=== PATIENT | male | born 1955 | race Caucasian/White ===

== ENCOUNTER 2017-04-25 15:49 | Inpatient (IN) | payer OTHER ==
--- NOTE | ~2017-04-25 | DS ---
Discharge Summary [facility] [address] [place]. [address] NAME: ZO LEBRON : 59 STATUS : DIS IN PAT#: [id number] AGE: 61 ADM/REG DATE : 04/25/17 MR#: [id number] REPORT SERV DATE: 05/01/17 DICTATED BY: AAKASH RODRIGUEZ DATE: 04/30/17 REPORT STATUS : Draft TRANSCRIBED BY: MODL DATE: 04/30/17 ADMISSION DATE: 04/25/2017 DISCHARGE DATE: 04/30/2017 The patient is a 61-year-old male with a history of and significant tobacco abuse, who presented to the hospital with a complaint of a gangrenous finger. For further details, please refer to the H and P dictated by me on 04/25/2017. Upon presenting to the hospital, the patient was admitted on the Hospitalist Service for further management given his right third digit upper extremity gangrene. Vascular Surgery was consulted. Working diagnosis was Buerger's disease, however, lab work was obtained to rule out any possible etiology. The patient was taken to the OR by Vascular Surgery and right finger amputated. The patient returned to the hospital room where he has remained hemodynamically stable. During his hospital course, the patient has been requesting significant pain medication. His drug of preference was Dilaudid, and that when Dilaudid was discontinued, the patient got very irritated during his hospital course status post amputation, the patient has remained hemodynamically stable. Workup for autoimmune etiologies so far has been negative, however, the patient has a positive CHARISSA workup. Results for scleroderma are still pending. Given the patient's hemodynamic stability and clearance from Vascular Surgery, the patient will be discharged to home today. The plan is for the patient to follow up with Vascular Surgery in two to three weeks for followup, that has been discussed with the patient. DISCHARGE PHYSICAL EXAMINATION: VITAL SIGNS: Blood pressure 93/57 with a pulse of 100, respirations 15, O2 saturation 97% on room air. GENERAL: The patient is lying in bed, in no acute distress. Appears stated age. HEENT: Normocephalic and atraumatic. Extraocular motors intact. Oral mucosa was moist. Trachea midline and symmetric. RESPIRATIONS: Normal respiratory effort. Equal chest expansion. Cardiovascular: Regular rate and rhythm. No murmurs were noted. ABDOMEN: Flat. Positive bowel sounds. Nontender. Nondistended. EXTREMITIES: No cyanosis, no clubbing, no edema. DISCHARGE DIAGNOSES: 1. Buerger disease. 2. . 3. Tobacco abuse. DISCHARGE MEDICATIONS: 1. Aspirin 81 mg p.o. daily. 2. Atorvastatin 40 mg p.o. daily. 3. Nifedipine XL 30 mg p.o. at bedtime. 4. Viagra 50 mg p.o. q.8 hours. DISPOSITION: The patient will be discharged to home. ACTIVITY: As tolerated. Discharge Summary [address] [address] NAME: ZO LEBRON : 59 STATUS : DIS IN PAT#: [id number] AGE: 61 ADM/REG DATE : 04/25/17 MR#: [id number] REPORT SERV DATE: 05/01/17 DICTATED BY: AAKASH RODRIGUEZ DATE: 04/30/17 REPORT STATUS : Draft TRANSCRIBED BY: LORETTA DATE: 04/30/17 DIET: As tolerated. Greater than 30 minutes was spent in dictating note, coordinating discharge, dictating prescription. DICTATED BY: MD ERICK Thomas/LORETTA Aakash Rodriguez MD / [id number] CC: Aakash Rodriguez MD
--- NOTE | ~2017-04-25 | OP ---
Record Of Operation [facility] [place] [address] [place] [place] [address] NAME: ZO LEBRON : 59 STATUS : ADM IN [facility]#: [id number] AGE: 61 ADM/REG DATE : 04/25/17 MR#: [id number] REPORT SERV DATE: 04/27/17 DICTATED BY: MEÑO LEMA JR. DATE: 04/27/17 REPORT STATUS : Draft TRANSCRIBED BY: MODL DATE: 04/27/17 DATE OF PROCEDURE: 04/27/2017 PREOPERATIVE DIAGNOSES: Buerger's disease, infarction of tip of right third finger. POSTOPERATIVE DIAGNOSES: Buerger's disease, infarction of tip of right third finger. OPERATION: Right third finger disarticulation through the PIP joint. SURGEON: Dr. Meño Lema. VASCULAR FELLOW: Dr. Mireya Nixon. HISTORY: This is a 61-year-old white male, admitted to the hospital two days ago with infarction at the tip of his right third finger, and a palpable right radial pulse, compatible with Buerger's disease. It was extremely painful. DESCRIPTION OF PROCEDURE: The patient was placed on the operating room table. He underwent a general anesthetic. The right hand was prepped and draped in the usual sterile manner. Standard anterior-posterior flaps were drawn and then cut. The extensor and flexor tendons were cut. The joint space was entered. The finger was disarticulated. The wound was closed with 4-0 nylon. The patient tolerated the procedure well. Taken back to the recovery room in fair condition. There were no intraoperative complications. ESTIMATED BLOOD LOSS: Negligible. DF/LORETTA Meño Lema Jr., M.D. / [id number] CC: Ramone Langston MD
--- NOTE | ~2017-04-25 | HP ---
History And Physical [facility] [address] [facility] [place]. [address] NAME: ZO GANDHI : 59 STATUS : ADM IN [facility]#: [id number] AGE: 61 ADM/REG DATE : 04/25/17 MR#: [id number] REPORT SERV DATE: 04/25/17 DICTATED BY: AAKASH RODRIGUEZ DATE: 04/25/17 REPORT STATUS : Draft TRANSCRIBED BY: MODL DATE: 04/25/17 DATE OF ADMISSION: 04/25/2017 CHIEF COMPLAINT: Right third finger pain and gangrene. HISTORY OF PRESENTING ILLNESS: Mr. Gandhi is a 61-year-old male with a history of hypertension and significant tobacco abuse who presented to the hospital with a complaint of right upper extremity third digit gangrene and severe pain. Patient states that his symptoms started about one month ago. He states that about one month ago he started having severe pain in his third right upper extremity digit, which progressively worsened and became gangrenous. Patient states that he had his symptoms evaluated at the [facility] in [place] about two weeks ago, at which time, he was given pain medications, placed on antibiotics, and subsequently discharged. He was told to stop smoking and was not offered nicotine patch as this would not have improved his symptoms. Patient subsequently left [place] and returned to [place] and has continued to smoke. He presents today with severe pain that he rates as throbbing, 10/10 in severity. Upon presentation to the emergency room, preliminary workup included CBC and chem-7, which noted elevated WBC at 12.3. Patient was admitted under Hospitalist Service for further management. At the time of my evaluation, patient corroborated the above story. He denies any injury or any trauma to the finger stating that his symptoms happened all of a sudden. He denies any other medical problems and states that he is relatively healthy. He, however, endorsed significant tobacco use reporting an 80-pack year smoking history. Reports intermittent use of marijuana stating that the last time he used the said medication was about five years ago. Denies any cocaine use or heroin use. REVIEW OF SYSTEMS: A 10-point review of system was performed. All systems were negative except as noted in the HPI. PAST MEDICAL HISTORY: Significant for hypertension. PAST SURGICAL HISTORY: Appendectomy. FAMILY HISTORY: Noncontributory. SOCIAL HISTORY: The patient reports an 80-pack year smoking history. He reports alcohol use. Reports a remote history of marijuana use. States that he has not used it in the past five years. ALLERGIES: PATIENT IS ALLERGIC TO PENICILLIN. PHYSICAL EXAMINATION: VITAL SIGNS: On presentation, blood pressure 117/71 with a pulse of 91, respiration 18, O2 saturation 94% on room air. GENERAL: Patient sitting in bed, in moderate distress. Appears stated age. HEENT: Normocephalic, atraumatic. Extraocular motors intact. Moist oral mucosa. History And Physical [address] [address] NAME: ZO GANDHI : 59 STATUS : ADM IN [facility]#: [id number] AGE: 61 ADM/REG DATE : 04/25/17 MR#: [id number] REPORT SERV DATE: 04/25/17 DICTATED BY: AAKASH RODRIGUEZ DATE: 04/25/17 REPORT STATUS : Draft TRANSCRIBED BY: LORETTA DATE: 04/25/17 NECK: Trachea midline and symmetric. No JVD noted. CHEST: Nontender to palpation. CARDIOVASCULAR: Regular rate and rhythm. S1, S2. No murmurs, rubs, or gallops. LUNGS: Clear to auscultation bilaterally. No added breath sounds. ABDOMEN: Positive bowel sounds. Nontender, nondistended. EXTREMITIES: Third digit gangrene noted. No cyanosis; however, clubbing noted on upper extremities. IMAGING: No imaging available. LABS: WBC 12.3, hemoglobin 12.6, hematocrit 37.4, platelets 583. Sodium 138, potassium 4.0, chloride 105, bicarb 26, BUN 18, creatinine 0.66, glucose 103. ASSESSMENT AND PLAN: 1. Right third digit upper extremity gangrene. Differentials include thromboangiitis obliterans versus CREST syndrome versus lupus versus mixed connective tissue disease versus scleroderma. Etiology unclear at this time. Thromboangiitis obliterans, average age of onset is usually between 40 to 45, and also more common in individuals that have recently smoked or not smoked for an extended period of time. However, thromboangiitis obliterans is a diagnosis of exclusion, so plan will be to exclude other etiologies of occlusive vascular disease. We will consult Vascular Surgery. We will obtain ESR, CRP, anticentromere antibody. We will also check for CHARISSA, rheumatoid factor, and Scl-70 to rule out scleroderma. We will also check for clotting problems including protein C, protein S, antithrombin III, and Factor V Leiden. We will also check for antiphospholipid antibodies and anticardiolipin antibodies. Also, we will obtain urine to check for cocaine, amphetamines, and cannabis. 2. Hypertension, currently controlled. Patient on nifedipine XL. Continue current management. 3. Tobacco abuse. Patient reports [id number] smoking history. We will hold nicotine patch as it worsens thromboangiitis. We will consider bupropion and varenicline. ERICK/LORETTA Aakash Rodriguez MD / [id number] CC: Aakash Rodriguez MD
[2017-04-25 13:46] LABS: BASOPHILS 0.6 %; BASOPHILS ABSOLUTE 0.07 10/3/uL (0.0-0.16); EOSINOPHILS 6.5 %; ER CBC TAT 0 Hrs 07 Mins; HEMATOCRIT 37.4 % (40.0-51.0); HEMOGLOBIN 12.6 g/dL (13.6-17.8); IMMATURE GRANULOCYTES 0.7 %; IMMATURE GRANULOCYTES ABSOLUTE 0.09 10/3/uL (0.0-0.11); LYMPHOCYTES 19.1 %; LYMPHOCYTES ABSOLUTE 2.35 10/3/uL (0.67-4.30); MANUAL DIFF NO %; MEAN CORPUS HGB CONC 33.7 g/dL (32.0-36.0); MEAN CORPUSCULAR VOLUME 97.9 fL (80-100); MEAN PLATELET VOLUME 8.3 fL (9.2-13.0); MONOCYTES 8.4 %; MONOCYTES ABSOLUTE 1.03 10/3/uL (0.21-1.20); NEUTROPHILS 64.7 %; NEUTROPHILS ABSOLUTE 7.98 10/3/uL (2.02-8.40); PLATELET COUNT 583 10/3/uL (150-400); RBC DISTRIBUTION WIDTH 15.1 % (12.0-16.0); RED CELL COUNT 3.82 10/6/uL (4.7-6.1); WHITE BLOOD CELLS 12.3 10/3/uL (4.5-10.5)
[2017-04-25 13:52] LABS: PARTIAL THROMBO TIME 36.4 SEC (22.5-37.2); PROTIME (NOT ORD) 12.8 SEC (12.0-14.5)
[2017-04-25 14:04] LABS: A/G RATIO 0.8 (0.7-1.9); ALBUMIN 2.8 G/DL (3.5-5.0); ALKALINE PHOSPHATASE 101 U/L (45-117); BUN (BLOOD UREA NITROGEN) 18 MG/DL (6-23); CALCIUM, SERUM 8.4 MG/DL (8.5-10.4); CHLORIDE, SERUM 105 MMOL/L (96-112); CO2 (CARBON DIOXIDE) 26 MMOL/L (24-34); CREATININE 0.66 MG/DL (0.70-1.30); GFR AFRICAN AMERICAN 123 ML/MIN (>=60); GFR NON AFRICAN AMERICAN 106 ML/MIN (>=60); GLOBULIN 3.5 G/DL (2.5-4.1); GLUCOSE, SERUM 103 MG/DL (60-99); SGOT(AST) 176 U/L (5-40); SGPT(ALT) 97 U/L (5-65); SODIUM, SERUM 138 MMOL/L (135-148); TOTAL BILIRUBIN 0.4 MG/DL (0-1.2); TOTAL PROTEIN 6.3 G/DL (6.0-8.5)
[2017-04-25 14:05] LABS: LACTATE 1.6 MMOL/L (0.3-2.4)
[~2017-04-25 15:49] MED LIST: ALEVE220 MG PO; ASAB PO; LIPITOR40 PO; NXL3 PO; ROXICODONE15 MG PO; T PO; VIAGRA50 MG PO
[2017-04-26 07:03] LABS: HEMATOCRIT 39.1 % (40.0-51.0); MEAN CORPUS HGB CONC 33.2 g/dL (32.0-36.0); MEAN CORPUSCULAR HEMOGLOB 32.9 pg (26.0-34.0); PLATELET COUNT 671 10/3/uL (150-400); RBC DISTRIBUTION WIDTH 15.2 % (12.0-16.0); RED CELL COUNT 3.95 10/6/uL (4.7-6.1); WHITE BLOOD CELLS 13.9 10/3/uL (4.5-10.5)
[2017-04-26 07:06] LABS: MANUAL DIFF YES %
[2017-04-26 07:24] LABS: A/G RATIO 0.8 (0.7-1.9); ALBUMIN 2.8 G/DL (3.5-5.0); ALKALINE PHOSPHATASE 101 U/L (45-117); BUN (BLOOD UREA NITROGEN) 17 MG/DL (6-23); C-REACTIVE PROTEIN 18.5 MG/L (<8.0); CALCIUM, SERUM 8.4 MG/DL (8.5-10.4); CHLORIDE, SERUM 105 MMOL/L (96-112); CO2 (CARBON DIOXIDE) 27 MMOL/L (24-34); CREATININE 0.57 MG/DL (0.70-1.30); GFR AFRICAN AMERICAN 130 ML/MIN (>=60); GFR NON AFRICAN AMERICAN 112 ML/MIN (>=60); GLOBULIN 3.6 G/DL (2.5-4.1); PHOSPHORUS, SERUM 3.6 MG/DL (2.5-4.5); SGPT(ALT) 100 U/L (5-65); SODIUM, SERUM 134 MMOL/L (135-148); TOTAL BILIRUBIN 0.3 MG/DL (0-1.2); TOTAL PROTEIN 6.4 G/DL (6.0-8.5)
[2017-04-26 07:26] LABS: GLUCOSE, SERUM 64 MG/DL (60-99); POTASSIUM, SERUM 4.4 MMOL/L (3.5-5.3); SGOT(AST) 176 U/L (5-40)
[2017-04-26 07:34] LABS: BAND NEUTROPHILS 7 %; BASOPHILS 2 %; BASOPHILS ABSOLUTE (CALC) 0.28 10/3/uL (0.0-0.16); EOSINOPHILS 11 %; EOSINOPHILS ABSOLUTE (CALC) 1.53 10/3/uL (0.0-0.53); LYMPHOCYTES 10 %; LYMPHOCYTES ABSOLUTE (CALC) 1.39 10/3/uL (0.67-4.30); MONOCYTES 7 %; MONOCYTES ABSOLUTE (CALC) 0.97 10/3/uL (0.21-1.20); NEUTROPHILS ABSOLUTE (CALC) 9.73 10/3/uL (2.02-8.40); PLATELET ESTIMATE INC (ADEQUATE); SEGMENTED NEUTROPHIL (0) 63 %; TOTAL NUCLEATED CELLS 100
[2017-04-26 07:35] LABS: RBC MORPHOLOGY NORM (NORMAL)
[2017-04-26 08:12] LABS: ANTITHROMBIN 3 ACTIVITY 91 % (80-121)
[2017-04-26 08:25] LABS: SED RATE 21 MM/HR (0-15)
[2017-04-26 22:27] LABS: AMPHETAMINES (NOT ORD) NEG (NEG); BARBITURATES (NOT ORDERED NEG (NEG); BENZODIAZEPINES (NOT ORD) NEG (NEG); CANNABINOIDS (THC) NEG (NEG); COCAINE (NOT ORDERED) NEG (NEG); OPIATES POS (NEG); PHENCYCLIDINE(PCP) NEG (NEG); TRICYCLICS NEG (NEG)
[2017-04-27 06:20] LABS: BASOPHILS 0.8 %; BASOPHILS ABSOLUTE 0.09 10/3/uL (0.0-0.16); EOSINOPHILS 7.5 %; EOSINOPHILS ABSOLUTE 0.89 10/3/uL (0.0-0.53); HEMOGLOBIN 12.9 g/dL (13.6-17.8); IMMATURE GRANULOCYTES 0.8 %; LYMPHOCYTES 17.8 %; LYMPHOCYTES ABSOLUTE 2.12 10/3/uL (0.67-4.30); MEAN CORPUS HGB CONC 33.1 g/dL (32.0-36.0); MEAN CORPUSCULAR HEMOGLOB 32.5 pg (26.0-34.0); MEAN CORPUSCULAR VOLUME 98.2 fL (80-100); MEAN PLATELET VOLUME 8.7 fL (9.2-13.0); MONOCYTES 10.6 %; MONOCYTES ABSOLUTE 1.26 10/3/uL (0.21-1.20); NEUTROPHILS 62.5 %; NEUTROPHILS ABSOLUTE 7.48 10/3/uL (2.02-8.40); PLATELET COUNT 581 10/3/uL (150-400); RBC DISTRIBUTION WIDTH 15.2 % (12.0-16.0); RED CELL COUNT 3.97 10/6/uL (4.7-6.1); WHITE BLOOD CELLS 11.9 10/3/uL (4.5-10.5)
[2017-04-27 06:23] LABS: MANUAL DIFF NO %
[2017-04-27 06:39] LABS: A/G RATIO 0.7 (0.7-1.9); ALBUMIN 2.5 G/DL (3.5-5.0); CALCIUM, SERUM 8.7 MG/DL (8.5-10.4); CHLORIDE, SERUM 102 MMOL/L (96-112); CO2 (CARBON DIOXIDE) 26 MMOL/L (24-34); CREATININE 0.55 MG/DL (0.70-1.30); GFR AFRICAN AMERICAN 132 ML/MIN (>=60); GFR NON AFRICAN AMERICAN 114 ML/MIN (>=60); GLOBULIN 3.7 G/DL (2.5-4.1); SGPT(ALT) 92 U/L (5-65); SODIUM, SERUM 134 MMOL/L (135-148); TOTAL BILIRUBIN 0.4 MG/DL (0-1.2); TOTAL PROTEIN 6.2 G/DL (6.0-8.5)
[2017-04-27 06:42] LABS: ALKALINE PHOSPHATASE 88 U/L (45-117); BUN (BLOOD UREA NITROGEN) 13 MG/DL (6-23); GLUCOSE, SERUM 88 MG/DL (60-99); POTASSIUM, SERUM 4.5 MMOL/L (3.5-5.3); SGOT(AST) 159 U/L (5-40)
[2017-04-27 12:27] LABS: ANA PATTERN SPECKLED; ANA TITER 1:40 TITER; ANTI CENTROMERE ANTIBODY NEGATIVE (NEGATIVE)
[2017-04-28 05:37] LABS: BASOPHILS 0.7 %; BASOPHILS ABSOLUTE 0.08 10/3/uL (0.0-0.16); EOSINOPHILS 7.2 %; EOSINOPHILS ABSOLUTE 0.84 10/3/uL (0.0-0.53); HEMATOCRIT 37.2 % (40.0-51.0); HEMOGLOBIN 12.3 g/dL (13.6-17.8); IMMATURE GRANULOCYTES ABSOLUTE 0.12 10/3/uL (0.0-0.11); LYMPHOCYTES 19.9 %; LYMPHOCYTES ABSOLUTE 2.34 10/3/uL (0.67-4.30); MEAN CORPUS HGB CONC 33.1 g/dL (32.0-36.0); MEAN CORPUSCULAR HEMOGLOB 32.1 pg (26.0-34.0); MEAN CORPUSCULAR VOLUME 97.1 fL (80-100); MEAN PLATELET VOLUME 9.1 fL (9.2-13.0); MONOCYTES 11.2 %; MONOCYTES ABSOLUTE 1.31 10/3/uL (0.21-1.20); NEUTROPHILS ABSOLUTE 7.05 10/3/uL (2.02-8.40); PLATELET COUNT 594 10/3/uL (150-400); RBC DISTRIBUTION WIDTH 14.9 % (12.0-16.0); RED CELL COUNT 3.83 10/6/uL (4.7-6.1); WHITE BLOOD CELLS 11.7 10/3/uL (4.5-10.5)
[2017-04-28 05:40] LABS: A/G RATIO 0.7 (0.7-1.9); ALBUMIN 2.4 G/DL (3.5-5.0); ALKALINE PHOSPHATASE 85 U/L (45-117); BUN (BLOOD UREA NITROGEN) 15 MG/DL (6-23); CALCIUM, SERUM 8.4 MG/DL (8.5-10.4); CHLORIDE, SERUM 104 MMOL/L (96-112); CO2 (CARBON DIOXIDE) 28 MMOL/L (24-34); CREATININE 0.62 MG/DL (0.70-1.30); GFR AFRICAN AMERICAN 126 ML/MIN (>=60); GFR NON AFRICAN AMERICAN 109 ML/MIN (>=60); GLOBULIN 3.6 G/DL (2.5-4.1); GLUCOSE, SERUM 94 MG/DL (60-99); SGPT(ALT) 94 U/L (5-65); SODIUM, SERUM 136 MMOL/L (135-148); TOTAL BILIRUBIN 0.4 MG/DL (0-1.2)
[2017-04-28 05:41] LABS: POTASSIUM, SERUM 4.2 MMOL/L (3.5-5.3); SGOT(AST) 167 U/L (5-40)
[2017-04-28 05:49] LABS: MANUAL DIFF NO %
[2017-04-28 13:15] LABS: PROTEIN C ACTIVITY 129 % (70-145); PROTEIN S ACTIVITY 51 % (69-161)
[2017-04-29 06:49] LABS: BASOPHILS 0.4 %; BASOPHILS ABSOLUTE 0.06 10/3/uL (0.0-0.16); EOSINOPHILS 4.7 %; EOSINOPHILS ABSOLUTE 0.72 10/3/uL (0.0-0.53); HEMOGLOBIN 12.1 g/dL (13.6-17.8); IMMATURE GRANULOCYTES 0.7 %; LYMPHOCYTES 13.4 %; LYMPHOCYTES ABSOLUTE 2.04 10/3/uL (0.67-4.30); MEAN CORPUS HGB CONC 33.6 g/dL (32.0-36.0); MEAN CORPUSCULAR HEMOGLOB 32.4 pg (26.0-34.0); MEAN CORPUSCULAR VOLUME 96.5 fL (80-100); MONOCYTES 10.2 %; MONOCYTES ABSOLUTE 1.55 10/3/uL (0.21-1.20); NEUTROPHILS 70.6 %; NEUTROPHILS ABSOLUTE 10.72 10/3/uL (2.02-8.40); PLATELET COUNT 552 10/3/uL (150-400); RBC DISTRIBUTION WIDTH 14.9 % (12.0-16.0); RED CELL COUNT 3.73 10/6/uL (4.7-6.1); WHITE BLOOD CELLS 15.2 10/3/uL (4.5-10.5)
[2017-04-29 06:50] LABS: MANUAL DIFF NO %
[2017-04-29 07:03] LABS: A/G RATIO 0.7 (0.7-1.9); ALBUMIN 2.5 G/DL (3.5-5.0); ALKALINE PHOSPHATASE 87 U/L (45-117); BUN (BLOOD UREA NITROGEN) 15 MG/DL (6-23); CALCIUM, SERUM 8.5 MG/DL (8.5-10.4); CHLORIDE, SERUM 104 MMOL/L (96-112); CO2 (CARBON DIOXIDE) 28 MMOL/L (24-34); CREATININE 0.56 MG/DL (0.70-1.30); GFR AFRICAN AMERICAN 131 ML/MIN (>=60); GFR NON AFRICAN AMERICAN 113 ML/MIN (>=60); GLOBULIN 3.5 G/DL (2.5-4.1); GLUCOSE, SERUM 85 MG/DL (60-99); POTASSIUM, SERUM 4.2 MMOL/L (3.5-5.3); SGOT(AST) 171 U/L (5-40); SGPT(ALT) 98 U/L (5-65); SODIUM, SERUM 136 MMOL/L (135-148); TOTAL BILIRUBIN 0.4 MG/DL (0-1.2)
[2017-04-30] MEDS ORDERED: PCET PO (17:00)
[2017-05-14 11:05] LABS: ANTI-CARDIOLIPIN ANTIBODY IGA 3
== END 2017-04-30 19:36 | disposition home or self-care (01) | DRG 257 ==
LOC: ER 15:49 → 5SO 17:20
PROVIDERS: Hospitalist; Nurse Practitioner; Surgery
PROC: 0X6Q0Z0 Detachment at Right Middle Finger, Complete, Open Approach (ICD-10-PCS; principal; 2017-04-27 09:15)
DX: I73.1 Thromboangiitis obliterans [Buerger's disease] (principal); I10 Essential (primary) hypertension; F17.210 Nicotine dependence, cigarettes, uncomplicated; Z90.49 Acquired absence of other specified parts of digestive tract; Z98.890 Other specified postprocedural states; Z88.0 Allergy status to penicillin
CPT/HCPCS: 80053; 80069; 80305; 81241; 83036; 83605; 85025; 85300; 85303; 85306; 85610; 85652; 85730; 86039; 86140; 86147; 86235; 86255; 87040; 88305; 88311; 93923; 96374; 96375; 96376; 99284; A9270-GY; J0690; J1170; J2250; J2405